=== PATIENT | female | born 1940 | race Caucasian/White ===

== ENCOUNTER 2023-09-15 20:25 | Emergency (ER) | payer MEDICARE, SELFPAY ==
[2023-09-15 20:28] VITALS: BMI 25.6
[2023-09-15 20:29] VITALS: BP 103/70
--- NOTE | 2023-09-15 21:25 | ED.GENMED ---
History of Present Illness
General
Chief Complaint: Social Service Referral
Source: patient, records, ambulance crew and group home records
Exam Limitations: none
Time Seen by Provider: 09/15/23 21:06
Nursing documentation reviewed up to this point in time: agreed with
Travel History
Have you had any contact with someone who has COVID-19?: Unable to Answer
Do you have any symptoms of coronavirus? Fever > 100 degrees, chills, cough, shortness of breath, sore throat, loss of taste or smell, muscle aches, or headache?: Unable to Answer
History of Present Illness
History of Present Illness:
Patient is an 83-year-old female from a local group home where she became very aggressive this evening. Patient has a history of dementia. This is not an acute event. Patient denies any complaint. Patient denies headache, chest pain or
shortness of breath. Patient denies any abdominal pain or extremity pain.
Past History
Past History
ED Past Medical History: GERD, HTN and Other (Alzheimer's, dementia, encephalopathy, anemia, electrolyte imbalances)
Social History
Living: group home
Review of Systems
Review of Systems
All Other Systems: Not applicable
Phy Exam
Physical Exam
Physical Exam:
Physical Exam
General: No apparent distress, alert and interactive, well nourished, well hydrated
HENT: Normocephalic, supple with no lymphadenopathy, no thyromegaly
Eyes: Clear sclera, conjuctiva without injection
Heart: Regular rhythm and rate. No S3, S4. No murmur.
Lungs: No respiratory distress, no stridor, lung sounds clear and equal bilaterally
Abdomen: Soft, nontender, BS good
Neuro: Alert and oriented to person, CN II - XII intact, no motor focality
Skin: no rash
Psychiatric: well kept. interactive and cooperative but easily agitated
Extremities: No edema, cyanosis, tenderness
Course
Vital Signs
Initial and Last Documented VS:
Initial Vital Signs
Temp Pulse Resp Pulse Ox
98.2 F 86 18 96
09/15/23 20:28 09/15/23 20:28 09/15/23 20:28 09/15/23 20:28
Last Documented Vital Signs
Temp Pulse Resp Pulse Ox
98.2 F 86 18 96
09/15/23 20:28 09/15/23 20:28 09/15/23 20:28 09/15/23 20:28
*Radiology
Radiology exam reviewed: other (na)
*Pulse Oximetry
Patient hypoxic: no
*EKG
Interpreted by ED Provider?: NA
*Banquet Captain Interpretation
Rate: Banquet Captain- N/A
*Critical Care Note
Total Time (30-74mins, 75-104mins- exclusive of procedures): Not Applicable
Update Note
Update Note:
Reviewed the patient's medications and will start on 2.5 of Zyprexa a day. Black box warning is acknowledged but feel the patient will benefit.
ED Attending Note
-
Portions of this chart may have been created with voice recognition software.� Occasional wrong word or��sound alike� substitutions may have occurred due to the inherent limitations of voice recognition software.
Discharge Plan
Departure
Patient Disposition: [facility]ci/SNF
Date of Disposition: 09/15/23
Time of Disposition: 21:45
Patient with high blood pressure during this ER visit?: No
Condition: Fair
Discharge Problem:
Agitation due to dementia, Dementia
Instructions: Dementia (including Alzheimer disease), Tips for caregivers of people with Alzheimer disease
Prescriptions:
New
olanzapine [Zyprexa] 2.5 mg tablet
2.5 mg PO DAILY Qty: 14 0RF
No Action
acetaminophen 325 mg Tablet
650 mg PO Q4H PRN (Reason: mild pain/temp>100F)
alendronate 70 mg Tablet
70 mg PO QWEEK
cyanocobalamin (vitamin B-12) [Vitamin B-12] 1,000 mcg Tablet
1,000 mcg PO DAILY
valsartan 80 mg Tablet
80 mg PO DAILY
magnesium hydroxide [Milk of Magnesia] 400 mg/5 mL Suspension
30 ml PO DAILY PRN (Reason: if no bm x 3 days)
bisacodyl [Dulcolax (bisacodyl)] 10 mg Suppository
10 mg AK DAILY PRN (Reason: if mom ineffective after 24hrs)
Fleet Enema 19-7 gram/118 mL Enema
118 ml AK DAILY PRN (Reason: if dulcolax ineffective after 24hrs)
folic acid 1 mg Tablet
1 mg PO DAILY
multivitamin with minerals Tablet
1 tab PO DAILY
calcium carbonate-vitamin D3 [Calcium 600 + D(3)] 600 mg-10 mcg (400 unit) Tablet
1 tab PO BID
Referrals:
Ridge Johnson MD [Family Provider] - Follow up in 2-3 days
Activity Restrictions/Additional Instructions:
Continue present medications and therapy
Interventions
Interventions:
*Risk Screen - Suicide Last Done: 09/15/23 20:28
*General Assessment Last Done: 09/15/23 20:28
*Neglect/Abuse Screening Last Done: 09/15/23 20:28
Discharge Date and Time
Print Language: DOMINICAN
[2023-09-15 23:03] VITALS: BP 106/67
== END 2023-09-16 00:09 ==
LOC: EMR 20:25
PROVIDERS: EMERGENCY PHYSICIAN Emergency Medicine; FAMILY PHYSICIAN Internal Medicine
DX: G30.9 Alzheimer's disease, unspecified (principal); F02.811 Dementia in other diseases classified elsewhere, unspecified severity, with agitation
CPT/HCPCS: 99283

== ENCOUNTER 2023-12-21 20:56 | Inpatient (IN) | payer MEDICARE, OTHER, SELFPAY ==
[2023-12-21 16:22] VITALS: BP 135/61
[2023-12-21 16:23] VITALS: BP 135/61; BMI 24.6
[2023-12-21 16:42] LABS: % Basophils 0.3 % (0-2); % Immature Granulocytes 0.3 % (0-0.5); % Lymphocytes 24.2 % (20.5-51.1); % Monocytes 6.7 % (1.7-9.3); % Neutrophils 65.5 % (42.2-75.2); Absolute Eosinophils 0.1 10^3/uL (0-0.7); Absolute Lymphocytes 0.9 10^3/uL (1.2-3.4); Absolute Monocytes 0.3 10^3/uL (0.1-0.6); Absolute Neutrophils 2.4 10^3/uL (1.4-6.5); Hematocrit 30.2 % (37.0-47.0); Hemoglobin 10.3 g/dL (12.0-16.0); Mean Corp Hgb Conc. 34.1 g/dL (33.0-37.0); Mean Corpuscular Volume 93.8 fL (81.0-99.0); Mean Platelet Volume 8.8 fL (7.4-10.4); Nucleated Red Blood Cells % 0 %; Platelet Count 152 10^3/uL (130-400); Red Blood Cell Count 3.22 10^6/uL (4.20-5.40); Red Cell Dist. Width 14.9 % (11.5-14.5); White Blood Cell Count 3.7 10^3/uL (4.8-10.8)
[2023-12-21 16:55] LABS: ALT (SGPT) 14 U/L (0-35); AST (SGOT) 29 U/L (14-36); Albumin 3.3 g/dl (3.5-5.0); Alkaline Phosphatase 66 U/L (38-126); Blood Urea Nitrogen 17 mg/dl (7-17); Calcium 8.5 mg/dl (8.4-10.2); Carbon Dioxide 25 mmol/L (22-30); Chloride 108 mmol/L (98-107); Estimated Creatinine Clearance 48 ml/min; Glucose 101 mg/dl (70-99); Potassium 3.3 mmol/L (3.5-5.1); Sodium 140 mmol/L (135-145); Total Bilirubin 0.8 mg/dl (0.2-1.3); Total Protein 5.9 g/dl (6.3-8.2); eGFR > 60.00
--- NOTE | 2023-12-21 18:18 | ED.MUSCINJ ---
HPI-Injury
General
Chief Complaint: Fall
Source: ambulance crew and alf
Exam Limitations: altered mental status
Time Seen by Provider: 12/21/23 16:34
Nursing documentation reviewed up to this point in time: agreed with
History of Present Illness-Injury
Is this injury a work related problem?: No
Is pt an associate of [facility]/[place]?: No
Initial Injury comments:
History of dementia. Resides in alf. Staff found her on floor, complaining of left hip pain. Brought to ED via EMS for eval.
Past History
Past History
ED Past Medical History: GERD, HTN and Other (Alzheimer's, dementia, encephalopathy, anemia, electrolyte imbalances)
Social History
Living: alf
Review of Systems
Review of Systems
Allergies reviewed?: Yes
All Other Systems: ROS reviewed and negative except as documented in HPI and ROS
Constitutional: Reports no symptoms
EENT: Reports no symptoms
Respiratory: Reports no symptoms
Cardiac: Reports no symptoms
ABD/GI: Reports no symptoms
: Reports no symptoms
Musculoskeletal: Reports joint pain (Left hip pain)
Skin: Reports no symptoms
Neurological: Reports no symptoms
Psychiatric: Reports no symptoms
Musculoskeletal Injury Exam
Musculoskeletal Injury Exam
Left Hip:
Pain with Movement?: Moderate
Tender to palpation?: Moderate
Soft tissue swelling?: None
External deformity and angulation?: None
Joint effusion?: None
Contusion?: Moderate
Hematoma-local bleeding into tissue?: None
Strain- Sprain- Tear (Connective tissue injury)?: Moderate
Crepitus with movement?: No
Joint instability?: No
Malalignment/deformity?: No
Range of motion: Limited
Distal skin color and temperature: normal-warm & good color
Capillary Refill: normal
Normal distal neurovascular exam?: Yes
Peripheral Pulses: posterior tibial (left): 3+ and dorsalis pedis (left): 3+
Phy Exam
General Physical Exam
General Presentation: mild distress
General age: appears stated age
General Skin: warm and dry
General Mental: alert
Musculoskeletal Exam
Musculoskeletal Exam: neuro vasc intact
Skin Exam
Skin Exam: normal color, warm/dry and no rash
Psychiatric Exam
Psychiatric Exam: normal mood/affect
Injury Course
Orders/Labs/Results
Orders:
Orders
12/21/23 16:35
CMP [Comprehensive Metabolic Panel] Urgent
Complete Blood Count/With Diff Urgent
12/21/23 16:47
Hip, Left 2-3 Views [CR Hip - LT w/wo Pel 2-3 Vw*] Urgent
Comment:
Reason For Exam: fall
Include a pelvis x-ray?: Yes
12/21/23 17:17
Potassium Chloride Powder [Klor-Con] 40 meq PO NOW STA
12/21/23 18:30
Restraints - Non Violent As Directed
Justification-Patient:: 2-Protective Intervention
Restraint Type-: Soft Limb-L&R Wrist/4rail
Apply From (date): 12/21/23
Apply from (time): 17:00
Remove (date): 12/22/23
Remove (time): 23:59
12/21/23 18:49
CT Head W/o Iv Contrast Urgent
Comment:
Reason For Exam: unwitnessed fall
12/21/23 20:44
Admit/Transfer Patient As Directed
Co-Sign Provider:
Level of Care: Inpatient admission
Assign to:: Medical/Surgical
Physician / Group: Hospitalist
Diagnosis: broken hip
Reason for Hospitalization: broken hip
Expected length of stay greater than two midnights?: Yes
ELOS- Estimated Length of Stay in days: 4
I certify the patient meets the requirements for IP care: Yes
12/21/23 20:47
Code Status As Directed
Resuscitation Status: Do not resuscitate
Based on pt advanced directive or healthcare POA form: Yes
DNR Bracelet Application ONCE
12/21/23 21:53
Acetaminophen [Tylenol] 650 mg PO [id number] PRN
Bisacodyl [Dulcolax] 10 mg RECTAL DAILYPRN PRN
Bisacodyl [Dulcolax] 10 mg RECTAL [id number] PRN
Docusate W/Senna [Senokot-S] 1 tablet PO BIDPRN PRN
Lactated Ringers [Lr] 1,000 ml IV 50 mls/hr
Magnesium Hydroxide [Milk of Magnesia] 30 ml PO [id number] PRN
Morphine Sulfate 2 mg IV Q4HPRN PRN
Phosphate Enema [Fleet Phosphate Enema-Adult] 118 ml RECTAL DAILYPRN PRN
Polyethylene Glycol Powder [Miralax] 17 grams PO DAILYPRN PRN
12/21/23 21:53
Activity As Directed
Activity Level: Bedrest
Pneumatic Compression Sleeves As Directed
Type: Knee high
Vital Signs As Directed
Frequency: Per unit guidelines
DX Deep Vein Thrombosis Video Routine
12/21/23 22:00
Olanzapine [Zyprexa] 2.5 mg PO HS
12/21/23 22:04
Magnesium Routine
12/22/23 Breakfast
NPO
Allow oral meds: Yes
Allow clear liquids: 4hrs prior to procedure
NPO for procedure after (time): midnight
Comment: may have unrestricted clear liquid up to 4 hrs prior to scheduled procedure
Basic Metabolic Panel IN AM
Complete Blood Count/No Diff IN AM
Magnesium IN AM
12/22/23 08:00
Calcium Carbonate/Vitamin D3 [Oscal 500 + D] 500 mg PO BID
Cyanocobalamin [Vitamin B-12] 1,000 mcg PO DAILY
Trazodone [Desyrel] 12.5 mg PO BID
Abnormal Lab Results
12/21/23
16:35
WBC 3.7 L 10^3/uL
(4.8-10.8)
RBC 3.22 L 10^6/uL
(4.20-5.40)
Hgb 10.3 L g/dL
(12.0-16.0)
Hct 30.2 L %
(37.0-47.0)
MCH 32.0 H pg
(27.0-31.0)
RDW 14.9 H %
(11.5-14.5)
Absolute Lymphs (auto) 0.9 L 10^3/uL
(1.2-3.4)
Potassium 3.3 L mmol/L
(3.5-5.1)
Chloride 108 H mmol/L
(98-107)
Glucose 101 H mg/dl
(70-99)
Total Protein 5.9 L g/dl
(6.3-8.2)
Albumin 3.3 L g/dl
(3.5-5.0)
12/21/23 16:35
12/21/23 16:35
*Radiology
Radiology exam reviewed: radiology read reviewed
*Pulse Oximetry
Patient hypoxic: no
*Critical Care Note
Total Time (30-74mins, 75-104mins- exclusive of procedures): Not Applicable
Update Note
Update Note:
Patient to ED after unwitnessed fall at [place]. Complains of left hip pain. Xray confirming left femoral neck fx. She will be admtted to hospitalist. Dr. Correa notified via tiger text. Will plan for surgery tomorrow if medically cleared. Daughter
Zuly notifed of findings and plan. She is agreeable to admission. Requests to speak with hospitalist and ortho after their evaluation.
ED Attending Note
-
Portions of this chart may have been created with voice recognition software.� Occasional wrong word or��sound alike� substitutions may have occurred due to the inherent limitations of voice recognition software.
Discharge Plan
Departure
Patient Disposition: Admit
Date of Disposition: 12/21/23
Time of Disposition: 18:21
Presentation/result/management discussed w/ accepting MD/DO: Hospitalist
Patient with high blood pressure during this ER visit?: No
Condition: Fair
Covid-19: Not Applicable
Discharge Problem:
Closed left hip fracture
Interventions
Interventions:
*Risk Screen - Suicide Last Done: 12/21/23 16:23
*General Assessment Last Done: 12/21/23 16:23
*Neglect/Abuse Screening Last Done: 12/21/23 16:23
ED- Fall Risk Assessment Last Done: 12/21/23 21:50
*ED COVID-19 Vaccine History Last Done: 12/21/23 16:23
*Nursing Disposition Last Done: 12/21/23 21:50
ED-Musculoskeletal Assessment Last Done: 12/21/23 16:31
ED- Neurological Assessment Last Done: 12/21/23 16:31
ED-Skin Assessment Last Done: 12/21/23 16:31
Discharge Date and Time
Discharge Date/Time: 12/21/23 20:50
--- NOTE | 2023-12-21 20:19 | HPS.HSE ---
Family Physician
-
Family Physician: Ridge Johnson
Chief Complaint
-
fall and pain
History of Present Illness
83 woman with a History of dementia. She lives in a assisted. The [place] Staff found her on floor, complaining of left hip pain. She was brought to ED via EMS for eval. She cannot give any further history. She was calm at the time of the exam.
She stated she had hip pain but was otherwise comfortable. In the ED she was found to have an Acute, fracture of the subcapital left femoral neck without significant displacement. The bony pelvis is intact. there are also Chronic degenerative
changes of the lower lumbar spine and symphysis pubis.
Medical History
Past Medical History
Past Medical History: Reports Other
Additional Past Medical History:
Dementia
GERD,
essential HTN
encephalopathy,
anemia,
electrolyte imbalances
Dysphagia
anxiety d/o
protein calorie malnutrition
folate deficiency
dermatochalasis
cataracts
PVD
osteoporosis
B12 deficiency
Chronic hypokalemia
Chronic sinusitis
Left shoulder pain
Past Surgical History: Reports Other
Additional Past Surgical History:
not known
Social History
Unable to obtain full social history at this time due to: Dementia
Family History
Family History: Not pertinent
Allergies / Home Medications
Allergies reflects when Allergies were last updated in [facility].
Home Medications with original date entered in [facility]
Allergy/Medication List:
Allergies
Allergy/AdvReac Type Severity Reaction Status Date / Time
lisinopril Allergy Unknown Verified 09/15/23 20:37
tramadol Allergy Unknown Verified 09/15/23 20:37
Home Medications
acetaminophen 325 mg tablet 650 mg PO BID 09/15/23
alendronate 70 mg tablet 70 mg PO QWEEK 09/15/23
bisacodyl 10 mg rectal suppository (Dulcolax (bisacodyl)) 10 mg SD DAILYPRN PRN if mom ineffective after 24hrs 09/15/23
calcium carbonate 600 mg-vitamin D3 10 mcg (400 unit) tablet (Calcium 600 + D(3)) 1 tab PO BID 09/15/23
cyanocobalamin (vitamin B-12) 1,000 mcg tablet (Vitamin B-12) 1,000 mcg PO DAILY 09/15/23
magnesium hydroxide 400 mg/5 mL oral suspension (Milk of Magnesia) 30 ml PO [id number] PRN if no bm x 3 days 09/15/23
multivitamin with minerals 1 tab PO DAILY 09/15/23
sodium phosphates 19 gram-7 gram/118 mL enema (Fleet Enema) 118 ml SD DAILYPRN PRN if dulcolax ineffective after 24hrs 09/15/23
acetaminophen 325 mg tablet (Tylenol) 650 mg PO [id number] PRN mild pain 12/21/23
olanzapine 2.5 mg tablet (Zyprexa) 2.5 mg PO HS 12/21/23
trazodone 50 mg tablet 12.5 mg PO BID 12/21/23
Review of Systems
-
Unable to obtain full review of systems at this time due to: Dementia
Physical Exam
Vital Signs
Vital Signs
Temp Pulse Resp BP Pulse Ox
97.6 F 67 16 135/61 96
12/21/23 16:23 12/21/23 16:23 12/21/23 16:23 12/21/23 16:23 12/21/23 16:23
Physical Exam
General: Well Developed, Well Nourished, No Apparent Distress and Comfortable
HEENT: Nose Appears Normal and Ears Appear Normal
Respiratory: Clear
Cardiac: S1/S2 and Regular Rhythm
GI: Soft, Non Tender and Non Distended
Musculoskeletal: No Clubbing, No Cyanosis, Edema, Left Lower Extremity and Edema, Right Lower Extremity
Skin: Warm and Dry
Neuro: Awake and Alert
Psych: Calm
Laboratory Results
-
12/21/23 16:35
12/21/23 16:35
Laboratory Results
Total Bilirubin 0.8 mg/dl (0.2-1.3) 12/21/23 16:35
AST 29 U/L (14-36) 12/21/23 16:35
ALT 14 U/L (0-35) 12/21/23 16:35
Alkaline Phosphatase 66 U/L (38-126) 12/21/23 16:35
Data Reviewed
-
Lab Data: Labs Reviewed by me
Impression/Plan
-
IMPRESSION:
83 woman with dementia, had a fall and broke her hip
PLAN:
1. Broken hip - ortho consulted
NPO after midnight
Probable surgery in am
2. Dementia - contact family to discuss disposition/ provide update
3. Anemia, H/H 10.3/30.2, baseline not known
Transfusion not indicated at this time
4. Low K, cause not known, appears chronic per records reviewed
Will replete with PO today
Recheck in am
SQ heparin for DVTp
Code status documented on [place] paperwork as DNR/DNI.
[2023-12-21 22:00] VITALS: BP 160/94; BMI 27.5
[2023-12-21] MEDS: LR 1000 IV (22:21)
[2023-12-21] MEDS: MORPHINE SULFATE 2 MG IV (22:21)
[2023-12-21] MEDS: ZYPREXA 2.5 MG PO (22:21)
[2023-12-21 22:26] LABS: Magnesium 1.8 mg/dl (1.6-2.3)
[2023-12-22] VITALS (11 sets, daily range): BP systolic 105–137; BP diastolic 67–86
[2023-12-22] MEDS: MORPHINE SULFATE 2 MG IV ×2 (03:10→08:28)
--- NOTE | 2023-12-22 04:44 | PTCARENOTE ---
Pt arrived on a stretcher from the ED with mitten restraints. Pt was combative and pulling at IV. Pt alert & oriented to self & place, not tome. Pt post fall sustained a left hip fx. Pt continue to exhibit behavior requiring the continued use of the
mittens, trying to pull at tubing and combative with staff at times, other times very sweet. Pt has IV LR running at 50mL/hr, bed alarm is on & frequent checks of pt to ensure her comfort, assess her pain and safety.
[2023-12-22 07:45] LABS: Hemoglobin 11.2 g/dL (12.0-16.0); Mean Corp Hgb Conc. 33.9 g/dL (33.0-37.0); Mean Corpuscular Hgb 31.9 pg (27.0-31.0); Mean Platelet Volume 9.4 fL (7.4-10.4); Platelet Count 183 10^3/uL (130-400); Red Blood Cell Count 3.51 10^6/uL (4.20-5.40); Red Cell Dist. Width 14.7 % (11.5-14.5); White Blood Cell Count 4.9 10^3/uL (4.8-10.8)
[2023-12-22 08:19] LABS: Blood Urea Nitrogen 14 mg/dl (7-17); Calcium 8.4 mg/dl (8.4-10.2); Carbon Dioxide 25 mmol/L (22-30); Chloride 106 mmol/L (98-107); Estimated Creatinine Clearance 53 ml/min; Glucose 105 mg/dl (70-99); Magnesium 1.9 mg/dl (1.6-2.3); Potassium 3.6 mmol/L (3.5-5.1); Sodium 139 mmol/L (135-145); eGFR > 60.00
[2023-12-22] MEDS: DESYREL 12.5 MG PO ×2 (08:22→20:52)
[2023-12-22] MEDS: OSCAL 500 + D 500 MG PO ×2 (08:23→20:52)
[2023-12-22] MEDS: VITAMIN B-12 1000 MCG PO (08:23)
--- NOTE | 2023-12-22 09:57 | CON.ORTHO ---
Addendum entered and electronically signed by Tito Correa MD 12/22/23 16:44:
I evaluated the patient at bedside. I agree with the above note. I discussed with the patient's daughter. 83-year-old female with a nondisplaced left femoral neck fracture sustained after a fall. The patient resides at a care facility. We
discussed treatment options including close reduction percutaneous pinning versus hemiarthroplasty. Because the fracture is nondisplaced, we discussed percutaneous pinning. We discussed the pros and cons of surgery including possible nonunion and
need for further surgery. All questions were answered. Shared decision was to proceed with percutaneous pinning
Original Note:
Consultation
-
Date/Time Consultation Requested: January 06/0958
Date/Time Consultation Performed: January 06/0805
Requesting Provider: Juan
Performing Provider: James Correa
Reason for Consultation: Left Hip Fx
Consultation - Orthopedics
History
Dictation#[id number]
I was asked to see this 83-year-old white female with a PMH of Dementia, GERD, essential HTN, encephalopathy, anemia, electrolyte imbalances, Dysphagia, dermatochalasis, PVD, osteoporosis, B12 deficiency, Chronic hypokalemia, Chronic sinusitis,
anxiety, who was found by staff on the floor at her senior living, [facility], complaining of left hip pain. family present for today's consultation. Denies any previous issues or injuries to the left hip. She was transported here to
[facility] ER where plain radiographs confirmed a nondisplaced subcapital proximal femur fracture. She has been admitted to the hospitalist service with consultation to us for the consideration of surgical correction of her LEFT hip
fracture
Allergies / Home Medications
Allergy/AdvReac Type Severity Reaction Status Date / Time
lisinopril Allergy Unknown Verified 09/15/23 20:37
tramadol Allergy Unknown Verified 09/15/23 20:37
�Medication �Instructions �Recorded
acetaminophen 325 mg tablet 650 mg PO BID 09/15/23
alendronate 70 mg tablet 70 mg PO QWEEK 09/15/23
bisacodyl 10 mg rectal suppository 10 mg ME DAILYPRN PRN if mom 09/15/23
(Dulcolax (bisacodyl)) ineffective after 24hrs
calcium carbonate 600 mg-vitamin 1 tab PO BID 09/15/23
D3 10 mcg (400 unit) tablet
(Calcium 600 + D(3))
cyanocobalamin (vitamin B-12) 1,000 mcg PO DAILY 09/15/23
1,000 mcg tablet (Vitamin B-12)
magnesium hydroxide 400 mg/5 mL 30 ml PO [id number] PRN if no bm x 3 09/15/23
oral suspension (Milk of Magnesia) days
multivitamin with minerals 1 tab PO DAILY 09/15/23
sodium phosphates 19 gram-7 118 ml ME DAILYPRN PRN if dulcolax 09/15/23
gram/118 mL enema (Fleet Enema) ineffective after 24hrs
acetaminophen 325 mg tablet 650 mg PO [id number] PRN mild pain 12/21/23
(Tylenol)
olanzapine 2.5 mg tablet (Zyprexa) 2.5 mg PO HS 12/21/23
trazodone 50 mg tablet 12.5 mg PO BID 12/21/23
Vital Signs / Lab Results
Temp Pulse Resp BP Pulse Ox
97.7 F 98 18 134/80 93
12/22/23 07:40 12/22/23 07:40 12/22/23 07:40 12/22/23 07:40 12/22/23 07:40
12/22/23 07:16
12/22/23 07:16
Assessment / Plan
PE: Afeb. Bedrest. Left hip skin intact. LE equal. No significant edema or ecchymosis. Grimacing with palpation of the hip. deferred range of motion and logroll due to known, nondisplaced fracture. Calf is soft. Palpable pulses distally
Xrays: NONDISPLACED LEFT femoral neck fracture
Impression: JAMSHID
Plan: Discussed with the patient's family, including her daughter Zuly (POA). Also discussed with attending hospitalist, Dr. Martinez. Fortunately her fracture is nondisplaced and can be fixated with cannulated screws. Luckily, at this point, she
does not require a prosthesis, as hip precautions would be very difficult with her dementia. I discussed the nonsurgical and surgical approaches to her fracture and the family has agreed and consented to proceed with surgical correction. RBAs of
each approach were discussed at length. I briefly discussed the postop and rehab course as well with the family, and we will appreciate CM assistance. We will arrange for a cannulated screw fixation of her LEFT hip a little later today under the
direction of Dr. Correa. OR aware. Operative site has been marked as the left hip. Surgical and blood consents have been signed by her daughter, Zuly (POA), and placed on the patient's chart. Patient is and will remain NPO. [employer] telecommunications line installer to the
OR. T&S requested. Will follow
--- NOTE | 2023-12-22 10:33 | CM ---
CM spoke with [facility]- pt is LTC resident/bed-hold
Pt with dementia and is alert to self and family only- typically believes she is at work at the SNF
Likes to stay busy and organizes her clothes daily- typically follows directions and can be re-oriented
Dose become angry at times but no aggression
Pt is independent with ambulation- WW recommended and pt refuses
Staff assist with cueing and coaxing for bathing and dressing
PCP- Ridge Johnson
Rx- [facility]
Call with dtr- introduced self and explained role
Family in agreement for SNF return on dc
Return SNF referral sent via [facility]
Anticipate OR today for hip surgery
Discharge Disposition- return [facility] SNF/LTC via BLS
--- NOTE | 2023-12-22 10:44 | PTCARENOTE ---
Patient right eye conjunctiva appears reddened and bloody with possible broken blood vessel. Dr. Martinez made aware and examined patient. No new orders at this time.
--- NOTE | 2023-12-22 16:46 | W.PN.HOSP.TC ---
Today's Communication/Plan
-
OR
Assessment / Plan
Assessment / Plan
Impression
Status post mechanical fall with left femoral neck fracture.
Osteoporosis contributing to fracture.
Dementia, senile type.
History of essential hypertension, currently not on antihypertensive medication
Anemia of chronic disease.
Plan:*
Left femoral neck fracture.
Plan is for surgical repair
Orthopedic consult appreciated
Medically optimized with no requirements for additional workup prior to surgery
Dementia senile type
Continue preadmission regimen including Zyprexa, trazodone.
Protective interventions, currently on upper extremity restraints.
Reassess postoperatively.
Anticipated Discharge: > 48 hours
Subjective/Interval History
-
Date of Service: December 22, 2023
Objective Data
-
Labs:
Laboratory Results
12/22/23
07:16
WBC 4.9
Hgb 11.2 L
Hct 33.0 L
Plt Count 183 D
Sodium 139
Potassium 3.6
Chloride 106
Carbon Dioxide 25
BUN 14
Creatinine 0.7
Glucose 105 H
Calcium 8.4
Vital Signs:
Vital Signs
Temp Pulse Resp BP Pulse Ox
97.6 F 60 18 105/68 97
12/22/23 15:25 12/22/23 15:25 12/22/23 15:25 12/22/23 15:25 12/22/23 15:25
I&O
12/21/23 12/22/23 12/23/23
06:59 06:59 06:59
Intake Total 570 / 570
Output Total 500 / 500
Balance 70 / 70
Physical Exam
-
General: Well Developed and No Apparent Distress
HEENT: Normocephalic, Atraumatic and Moist Mucous Membranes
Respiratory: Clear to Auscultation
Cardiac: Regular Rhythm and S1/S2; Negative Murmur, Rub or Gallop
GI: Soft, Nontender, Nondistended and Normal Bowel Sounds; Negative Organomegaly
Rectal: Deferred by Provider
Musculoskeletal: No Clubbing, No Cyanosis and No Edema
Skin: Negative Rash
Neuro: Awake, Alert, Oriented (To name only) and Nonfocal/Grossly Intact
--- NOTE | 2023-12-22 17:47 | PTCARENOTE ---
Patient remained with mitts b/l. Attempting to remove mitts and pull at IV. Patient taken to OR around [address] Report given to OR. Patients daughter Zuly made aware that patient left for surgery.
--- NOTE | 2023-12-22 18:54 | OR.RPT ---
Operative Report
Operative Report
Orthopedic Surgery Operative Note
DATE OF OPERATION: 12/22/2023
PREOPERATIVE DIAGNOSES: Left femoral neck fracture, nondisplaced
POSTOPERATIVE DIAGNOSES: Same
OPERATION PERFORMED: Left femoral neck percutaneous pinning
SURGEON: Tito Correa MD
ASSISTANTS: NA
ANESTHESIA: General
COMPLICATIONS: None
ESTIMATED BLOOD LOSS: 20mL
IMPLANTS: Coy stainless steel cannulated partially threaded 6.5mm screws x3 with washers
DRAINS: None
INDICATIONS FOR PROCEDURE: 83-year-old female presented from her care facility with left hip pain after a fall. X-rays showed nondisplaced left femoral neck fracture. I discussed with the patient's family treatment options including
hemiarthroplasty versus percutaneous pinning. The patient has dementia. We discussed that in light of the fracture being nondisplaced, percutaneous pinning may be an operative treatment to stabilize the fracture to permit healing. We discussed
the option of hemiarthroplasty and some the risks of being more invasive and potential instability. We discussed that if her fracture was displaced that hemiarthroplasty would be the preferred treatment. Shared decision was to proceed with
percutaneous pinning of the left femoral neck fracture.
We discussed the risks, benefits, and alternatives of various treatment options. Shared decision was to proceed with surgical treatment. The patient understood the risks including, but not limited to, bleeding, infection, failure to relieve pain,
more pain than preop, damage to blood vessels and nerves, need for reoperation, mechanical failure of the implants, wound healing problems, stiffness, instability, blood clot, pulmonary embolism, myocardial infarction, pneumonia, arrhythmia, CVA,
and . The patient and family accepted these risks and wished to proceed with surgery. All questions were answered and informed consent was obtained.
PROCEDURE IN DETAIL:
The patient was identified in the preoperative holding area. The operative limb was identified as the operative site and marked for safety. The patient was transferred to the operating room and transferred to the operative table. General anesthesia
was performed. IV antibiotics and TXA were given. All bony prominences were well-padded. The operative limb was prepped and draped in the usual sterile fashion.
Fluoroscopy was used to confirm the fracture was nondisplaced. The guidepin was localized under fluoroscopy on the posterior inferior aspect of the femoral neck. A 4 cm incision was made. Dissection was carried down to the IT band. The IT band
was split in line and blunt dissection was carried down to bone through the vastus lateralis. The guidepin was localized under fluoroscopy on the posterior inferior aspect of the femoral neck. The pin was advanced and checked on both AP and
lateral to confirm appropriate trajectory. The goal is to hug the inferior calcar. The pin was advanced until it was in subchondral bone. A second pin was placed in the similar fashion the posterior superior quadrant. A third pin was placed
under fluoroscopy in the anterior superior aspect of the femoral neck. The length of the pins were measured. The outer cortex was drilled. The screws were advanced on power and then by hand with washers with care to make sure no soft tissue was
entrapped. The screws had good bony purchase. Once all 3 screws were placed, the hip was taken through range of motion to ensure there was no intra-articular placement. The pins were removed.
The incision was thoroughly irrigated with sterile saline. The fascia was closed with 0 PDS. The deep dermal tissue was closed with 2-0 PDS in a running fashion. 3-0 Monocryl was used for the subcuticular layer. Dermabond was applied. An Aquacel
dressing was applied.
The patient awoke from anesthesia without any difficulties. The sponge and instrument counts were correct at the end of the case. I was present and participated in the entire procedure.
Post Operative Plan:
- Pain control
- PT/OT
- DVT prophylaxis: ASA x4 weeks
- ABX: Ancef x2 doses
- WB Status: WBAT - no open chain strengthening
Tito Correa MD
[2023-12-22] MEDS: TYLENOL PO ×3 (20:51→23:31)
[2023-12-22] MEDS: LR IV (20:51)
[2023-12-22] MEDS: ASPIRIN 325 MG PO (20:51)
[2023-12-22] MEDS: SENOKOT 17.2 MG PO (20:52)
[2023-12-22] MEDS: TYLENOL 650 MG PO (21:00)
[2023-12-22] MEDS: ZYPREXA 2.5 MG PO (23:23)
--- NOTE | 2023-12-23 00:10 | PTCARENOTE ---
Pt returned from PACU s/p L idalia hip screw at 1950. Pt drowsy but arousable to verbal. +CMS to LLE. Aquacell to left hip CDI. VS WNL. No c/o pain. Bed in lowest position, safety maintained. Assessment ongoing.
[2023-12-23] MEDS: ANCEF 5 IV ×2 (01:40→09:05)
[2023-12-23 03:14] VITALS: BP 142/77
[2023-12-23] MEDS: TYLENOL PO (03:56)
--- NOTE | 2023-12-23 07:44 | W.PN.ORTHO ---
Today's Communication / Plan
-
83yo POD#1 left hip CRPP under the direction of Dr. Correa
-Weight bearing as tolerated. Ambulate with assistive device
-PT/OT
-Maintain dressings
-Continue with pain management as needed
-Aspirin 325mg daily x4 weeks postop for DVT prophylaxis
-Case management consult for discharge planning
-Will continue to follow along
Assessment
.
Distal Motor Intact: Yes
Dressing:
Clean, dry and intact.
Plan
.
Surgery / Date: Left hip CRPP 12/22/23 Dr. Correa
DVT Prophylaxis: Aspirin
Activity:
Out of bed.
PT/OT
Subjective
.
.:
Patient resting comfortably in bed this morning. She reports no pain.
Vital Signs and Labs
.
Vital Signs and Labs:
Lab Results
12/22/23 07:16
12/22/23 07:16
Temp Pulse Resp BP Pulse Ox
97.7 F 70 14 142/77 97
12/23/23 03:14 12/23/23 03:14 12/23/23 03:14 12/23/23 03:14 12/23/23 03:14
Physical Exam
-
LLE: Dressing in place are clean, dry, and intact. Mild edema to thigh. Thigh soft and compressible. Mild tenderness to palpation of lateral hip. Able to plantar/dorsiflex the ankle. Sensation intact. Wiggles all toes. Cap refill <2secs
[2023-12-23 07:49] VITALS: BP 145/76
--- NOTE | 2023-12-23 08:30 | PN.CDI ---
CDI
- -
CDI:
Physician Documentation Request
Admit Date: 12/21/23 20:56
Dear Doctor Juan,
Clinical Indicators:
Patient admitted with left femoral neck fracture.
12/21 (04:44) RN note, '...Pt continue to exhibit behavior requiring the continued use of the mittens, trying to pull at tubing and combative with staff at times, other times very sweet.'
12/21 PN, 'Dementia senile type Continue preadmission regimen including Zyprexa, trazodone. Protective interventions, currently on upper extremity restraints.'
Please clarify any associated manifestations of the senile dementia:
Senile dementia with agitation/behavioral disturbance
Senile dementia without behavioral disturbance
Other, please specify
Use of terms such as suspected, likely, concern for, or probable (associated with a specific diagnosis that is being evaluated, monitored, or treated as if it exists) are acceptable and can be coded in the inpatient setting, when documented at the
time of discharge.
Thank you,
KLARISSA Gavin RN
CDI Specialist
available via tiger text
Please use your independent medical judgment in providing your response.
[2023-12-23] MEDS: ASPIRIN 325 MG PO (09:04)
[2023-12-23] MEDS: TYLENOL 650 MG PO ×3 (09:04→15:21)
[2023-12-23] MEDS: OSCAL 500 + D 500 MG PO (09:04)
[2023-12-23] MEDS: SENOKOT 17.2 MG PO (09:05)
[2023-12-23] MEDS: DESYREL 12.5 MG PO (09:05)
[2023-12-23] MEDS: VITAMIN B-12 1000 MCG PO (09:05)
[2023-12-23] MEDS: FLUSH (NSS) 2 FLUSH IV (09:09)
--- NOTE | 2023-12-23 12:29 | W.DS.TRANS ---
DC Summary - Residential Framing Carpenter
-
Discharge Instructions:
Discharge Diagnosis/Procedures Left femoral neck fracture
Diet Regular
Additional Activity Weight bearing as tolerated. Ambulate with
assistive device
-PT/OT
Instructions:
Stand-Alone Forms:
Changes to Home Medications: No
Discharge Medications:
DC Medications w/original date entered in [facility]
alendronate 70 mg tablet 70 mg PO QWEEK 09/15/23
bisacodyl 10 mg rectal suppository (Dulcolax (bisacodyl)) 10 mg CO DAILYPRN PRN if mom ineffective after 24hrs 09/15/23
calcium carbonate 600 mg-vitamin D3 10 mcg (400 unit) tablet (Calcium 600 + D(3)) 1 tab PO BID 09/15/23
cyanocobalamin (vitamin B-12) 1,000 mcg tablet (Vitamin B-12) 1,000 mcg PO DAILY 09/15/23
magnesium hydroxide 400 mg/5 mL oral suspension (Milk of Magnesia) 30 ml PO [id number] PRN if no bm x 3 days 09/15/23
multivitamin with minerals 1 tab PO DAILY 09/15/23
sodium phosphates 19 gram-7 gram/118 mL enema (Fleet Enema) 118 ml CO DAILYPRN PRN if dulcolax ineffective after 24hrs 09/15/23
acetaminophen 325 mg tablet (Tylenol) 650 mg PO [id number] PRN mild pain 12/21/23
olanzapine 2.5 mg tablet (Zyprexa) 2.5 mg PO HS 12/21/23
trazodone 50 mg tablet 12.5 mg PO BID 12/21/23
acetaminophen 325 mg tablet 650 mg (2 x 325 mg) PO Q4H #60 tabs 12/23/23
polyethylene glycol 3350 17 gram oral powder packet (HealthyLax) 17 g PO DAILYPRN PRN constipation #30 ea 12/23/23
Home Medication Changes
Pending Results: No
--- NOTE | 2023-12-23 12:36 | CM ---
Reviewed the chart notes. Voice message left for patient's daughter Zuly regarding discharge and IMM information. CM continues to be available to patient/family and is monitoring medical plan for needs at discharge.
Plan: Discharge back to [facility] today.
Call report to: [phone]
Fax report to: [phone]
Medical necessity and transport forms on chart.
[2023-12-23 13:07] VITALS: BP 160/92; PULSE 90; O2SAT 95
[2023-12-23 15:30] VITALS: BP 140/69
== END 2023-12-23 16:40 | DRG 482 ==
LOC: 2 SOUTH 20:56
PROVIDERS: ADMITTING PHYSICIAN Internal Medicine; ATTENDING PHYSICIAN Internal Medicine; CONSULT PHYSICIAN Orthopaedic Surgery; EMERGENCY PHYSICIAN Emergency Medicine; FAMILY PHYSICIAN Internal Medicine
PROC: 0QH734Z Insertion of Internal Fixation Device into Left Upper Femur, Percutaneous Approach (ICD-10-PCS; 2023-12-22)
DX: M80.052A Age-related osteoporosis with current pathological fracture, left femur, initial encounter for fracture (principal); Z66 Do not resuscitate; F03.90 Unspecified dementia, unspecified severity, without behavioral disturbance, psychotic disturbance, mood disturbance, and anxiety; D63.8 Anemia in other chronic diseases classified elsewhere; I10 Essential (primary) hypertension
CPT/HCPCS: 70450; 73502; 76000; 80048; 80053; 83735; 85025; 85027; 87070; 97163; 97167; 97530; 97535; 99285; C1713; C1769

== ENCOUNTER 2024-02-05 13:10 | Inpatient (IN) | payer MEDICARE, SELFPAY ==
[2024-02-02 15:14] VITALS: BMI 22.8
[2024-02-03] MEDS: TYLENOL 325 MG PO (20:38)
[2024-02-05] VITALS (10 sets, daily range): BP systolic 93–150; BP diastolic 35–104; BMI 22.7
[2024-02-05] MEDS: BACTROBAN NASAL 1 GRAM NASAL (14:15)
[2024-02-05] MEDS: NORMOSOL-R/PLASMALYTE-A 1000 IV ×2 (14:15→19:34)
--- NOTE | 2024-02-05 16:37 | OR.RPT ---
Operative Report
Operative Report
Orthopaedic Surgery Operative Note
DATE OF OPERATION: 02/05/2024
PREOPERATIVE DIAGNOSES: Left femoral neck malunion, hardware failure
POSTOPERATIVE DIAGNOSES: Same
OPERATION PERFORMED: Left hip hemiarthroplasty (22 modifier for complexity); removal of hardware
SURGEON: Tito Correa MD
PROPELLER LAYOUT WORKER: Jordin Gutierrez PA-C who helped with patient and limb positioning and retraction
ANESTHESIA: General
COMPLICATIONS: None.
ESTIMATED BLOOD LOSS: 200 mL.
DRAINS: None
SPECIMEN: None
FINDINGS: Displaced fracture of the femoral neck
IMPLANTS: [employer] stem size 11, standard offset, Size 48 Endo unipolar head, DJO bone cement, small cement restrictor, distal centralizer
INDICATIONS: The patient presented to the emergency department after a fall sustained about 6 weeks ago with left new onset hip pain. Xrays showed left nondisplaced femoral neck fracture. She underwent left femoral neck CRPP by me. She was
discharged to SNF and sustained a couple falls while at SNF. She followed up in the office 6 weeks after surgery, and xrays showed signs of displacement of the femoral neck fracture. She denied pain. I discussed treatment options with the patient
and her daughter. We discussed that based on the degree of displacement that revision fixation of the fracture may have a high risk of complication and failure. We discussed that surgical treatment would likely lead to further displacement and
eventual artiuclation of the screws in the pelvis causing pain. We discussed surgical treatment with arthroplasty. Based on the patient's age, dementia, and activity level, shared decision was to proceed with hemiarthroplasty if the acetabulum was
undamanged from the screws. I reviewed the risks, benefits, and alternatives of various treatment options. The patient understood the risks which included, but were not limited to, bleeding, infection, failure to relieve pain, more pain than preop,
damage to blood vessels and nerves, need for reoperation, mechanical failure of the implants, wound healing problems, stiffness, instability, blood clot, pulmonary embolism, myocardial infarction, pneumonia, arrhythmia, CVA, and . The patient
accepted these risks and wished to proceed. All questions were answered, and informed consent was obtained.
PROCEDURE IN DETAIL:
The patient was identified in the preoperative holding area. The left hip was identified as the operative site. The patient was taken in the operating room and transferred to the operative table. General anesthesia was performed. IV antibiotics and
tranexamic acid were administered. The patient was placed in the lateral position with Stulberg hip positioners. Axillary roll was placed. The down leg was well padded. All bony prominences were well padded. The operative limb was prepped and draped
in the usual sterile fashion.
Time out was performed. A posterolateral approach to the hip was used. The skin incision was centered over the greater trochanter. This was taken down sharply through subcutaneous tissues. Meticulous hemostasis was achieved throughout the case with
electrocautery. We split the fascia mariaelena in line with skin incision. I split the gluteus frederick bluntly. We cauterized all crossing vessels as we split it. I palpated the sciatic nerve and made sure it was well posterior in the operative field. It
was protected throughout the case. There was hematoma under the ITB. Dissection was more difficult due to the prior surgery and nonunion. No purulence or signs of infection.
The three cannulated screw heads were identified with their respective washers. These were removed without incident. The posterior anatomy was distorted due to fracture hematoma and swelling. I performed a partial bursectomy to identify the short
external rotators. The gluteus medius and minimus were identified and retracted anteriorly. I incised the piriformis tendon and conjoint tendon at their insertions. These were tagged for later repair. I then performed a trapezoidal capsulotomy. The
edges were tagged for later repair.
The femoral neck fracture was identified. The leg was flexed and internally rotated, and a fresh femoral neck cut was performed. The femur was translated anteriorly. Care was taken to preserve the labrum. The femoral head was carefully removed with
a contreras and a tenaculum. The head measured to be 48mm. The acetabulum was inspected and noted not to have marked degenerative changes. No signs of escoriations or damage from the screw heads. The head did not show penetration of the screws, either. A
trial head was placed in the acetabulum and size 48mm had appropriate fit and suction fit.
Attention was turned to the femur. Box osteotome and Charnley awe were used to open the canal. The femur was sequentially broached to size 11 which had appropriate fit and fill. A trial head was placed with standard offset neck and the hip was
reduced. Leg length and offset were checked and found to be appropriate. The hip was taken through complete range of motion and found to be stable in extension, the position of sleep, and at 90 degrees of flexion and internal rotation. Extended
offset was not available for the stem size, but the hip was stable with standard offset.
Trials were removed and the femoral canal was prepared with irrigation and ribbon gauze packing sequentially. A cement restrictor was placed into the femoral canal 1cm distal to the tip of the femoral stem. This was measured off the trial femoral
stem. Once the femoral canal was prepared, the cement was mixed. Once doughy in consistency, the cement was pressurized into the canal with a cement gun. The stem was then carefully inserted into the canal with care to minimize rotation or
micromotion. Excess cement was removed. Once the cement was polymerized, the joint was irrigated copiously. The acetabulum was inspected to be free of cement particles and other debris. The final head was impacted onto clean and dry trunion and the
hip was reduced. Leg length and stability were checked again and found to be acceptable. The sciatic nerve was inspected and noted to be free of tension and uninjured.
A dilute betadine soak was performed for approximately 3 minutes, and then the hip was copiously irrigated. I repaired the capsule, piriformis, and conjoint tendon with #2 Ethibond to drill holes in the greater trochanter. Local anesthetic was
injected. The fascia mariaelena was closed with #1 PDS in running fashion. The subcutaneous tissues were closed with 2-0 PDS in running fashion. The skin was reapproximated with 3-0 Monocryl subcuticular suture. I placed a Prineo dressing followed by a
Mepilex Ag dressing. The patient awoke from anesthesia without difficulty. Sponge and instrument counts were correct x2 at the end of the case.
I was present and participated in the entire procedure. The patient was sent to the recovery room in stable condition.
Of note, 22 modifer was added due to complexity for femoral neck malunion and prior hardware. This added about 20 additional minutes for exposure of the hip due to inflammatory changes from prior surgery and need for hardware removal.
Harsha Correa MD
[2024-02-05] MEDS: DEMEROL 12.5 MG IV (17:27)
[2024-02-05] MEDS: MORPHINE SULFATE 1 MG IV ×2 (18:20→18:57)
--- NOTE | 2024-02-05 19:30 | PTCARENOTE ---
Pt 84 y/o with hx of dementia and multiple falls came from PACU post Coversion L Cristopher. EBL 200 done unfder general. Pt confused x 3. Daughter Zuly will complete pt's admission via phone. She was the family member who gave consent for surgery, but
could not stay until pt brought up to 2S from PACU. Med Sitter in room. Pt from [facility] in [place] [facility]. Bed in a low position. Call light in reach.
[2024-02-05] MEDS: COLACE 100 MG PO (20:38)
[2024-02-05] MEDS: SENOKOT 17.2 MG PO (20:38)
[2024-02-05] MEDS: BACTROBAN 2% OINTMENT 1 APPLIC NASAL (20:39)
[2024-02-05] MEDS: TORADOL 10 MG IV (20:42)
[2024-02-05] MEDS: NEURONTIN 100 MG PO (20:42)
[2024-02-05] MEDS: ZYPREXA 2.5 MG PO (21:48)
[2024-02-05] MEDS: MELATONIN 3 MG PO (21:48)
[2024-02-05] MEDS: PEPCID 20 MG PO (21:48)
[2024-02-05] MEDS: ANCEF 5 IV (21:48)
[2024-02-05] MEDS: TYLENOL PO (22:00)
[2024-02-05] MEDS: DESYREL PO (22:03)
[2024-02-05] MEDS: ASPIRIN PO (22:06)
[2024-02-05] MEDS: DESYREL 25 MG PO (22:13)
[2024-02-05] MEDS: TYLENOL 325 MG PO (23:42)
[2024-02-06] VITALS (8 sets, daily range): BP systolic 92–130; BP diastolic 42–81; PULSE 60; O2SAT 95; BMI 22.7
--- NOTE | 2024-02-06 00:20 | PTCARENOTE ---
Pt has history of dementia, has been combative & trying to get out of bed. Pt removed 2 IVs. Spoke with daughter Zuly who said patient was in restraints here at in December 2023 post surgery. Reached out to [employer] TRIMMER about mittens and restraints order
finalized at 00:20.
[2024-02-06] MEDS: TYLENOL 325 MG PO ×4 (03:55→23:13)
[2024-02-06] MEDS: ANCEF 5 IV (05:12)
[2024-02-06] MEDS: TYLENOL PO ×3 (11:20→17:32)
[2024-02-06] MEDS: ASPIRIN 325 MG PO (11:21)
[2024-02-06] MEDS: NEURONTIN 100 MG PO ×2 (11:21→20:56)
[2024-02-06] MEDS: SENOKOT 17.2 MG PO ×2 (11:21→20:55)
[2024-02-06] MEDS: MOBIC 15 MG PO (11:21)
[2024-02-06] MEDS: DESYREL 25 MG PO ×2 (11:21→21:50)
[2024-02-06] MEDS: DECADRON 4 MG PO ×2 (11:21→20:55)
[2024-02-06] MEDS: COLACE 100 MG PO ×2 (11:21→20:55)
[2024-02-06] MEDS: BACTROBAN 2% OINTMENT 1 APPLIC NASAL ×2 (11:22→20:54)
[2024-02-06] MEDS: TORADOL 10 MG IV ×2 (11:22→21:56)
--- NOTE | 2024-02-06 12:11 | W.PN.ORTHO ---
Today's Communication / Plan
-
d/c when stable
Assessment
.
Distal Motor Intact: Yes
Dressing:
Clean, dry and intact.
Assessment:
L hip fracture-s/p Left femoral neck percutaneous pinning-12/22/23 Dr. Correa-conversion to left hip hemiarthroplasty-02/05/24
Plan
.
Surgery / Date: L hip hemiarthroplasty Dr. Correa 02/05/24
DVT Prophylaxis: Aspirin
Activity:
Out of bed.
PT/OT
Discharge Plan: SNF
Subjective
.
.:
Patient resting comfortably.
Vital Signs and Labs
.
Vital Signs and Labs:
Temp Pulse Resp BP Pulse Ox
97.6 F 73 16 130/80 100
02/06/24 11:37 02/06/24 11:37 02/06/24 11:37 02/06/24 11:37 02/06/24 11:37
Non-invasive Hgb result: 10.4
Physical Exam
-
HEENT: No pallor, cyanosis, or jaundice. Throat clear.
NECK: Supple. No JVD.
RESPIRATORY: Lungs clear to auscultation.
CVS: S1, S2 normal. RRR.� No murmur, rub or gallop.
ABDOMEN: Soft, non-tender. No distension. BS+/normal.
EXTREMITIES: strength equal, no calf pain with palpation
CTC OPERATOR: pleasantly confused, alert to persont
--- NOTE | 2024-02-06 12:25 | W.DS.TRANS ---
DC Summary - Gas Inspector
-
Discharge Instructions:
Discharge Diagnosis/Procedures L hip hemiarthroplasty Dr. Correa 02/05/24
Diet As tolerated
Activity With Walker,With assistance
Additional Activity Fall Precautions
Driving Restrictions No driving
Bathing Restrictions OK to Shower
Instructions:
Stand-Alone Forms:
Changes to Home Medications: Yes
Discharge Medications:
DC Medications w/original date entered in [facility]
alendronate 70 mg tablet 70 mg PO QWEEK OSTEOPOROSIS 09/15/23
bisacodyl 10 mg rectal suppository (Dulcolax (bisacodyl)) 10 mg NM DAILYPRN PRN if mom ineffective after 24hrs 09/15/23
calcium carbonate 600 mg-vitamin D3 10 mcg (400 unit) tablet (Calcium 600 + D(3)) 1 tab PO BID Supplement 09/15/23
cyanocobalamin (vitamin B-12) 1,000 mcg tablet (Vitamin B-12) 1,000 mcg PO DAILY Supplement 09/15/23
magnesium hydroxide 400 mg/5 mL oral suspension (Milk of Magnesia) 30 ml PO [id number] PRN if no bm x 3 days 09/15/23
sodium phosphates 19 gram-7 gram/118 mL enema (Fleet Enema) 118 ml NM DAILYPRN PRN if dulcolax ineffective after 24hrs 09/15/23
olanzapine 2.5 mg tablet (Zyprexa) 2.5 mg PO HS Mental Health/Anxiety 12/21/23
trazodone 50 mg tablet 25 mg PO TID Sleep 12/21/23
acetaminophen 325 mg tablet 650 mg PO Q4H PRN pain/fever 02/02/24
melatonin 3 mg tablet 3 mg PO HS PRN insomnia 02/02/24
multivitamin 1 tab PO DAILY Supplement 02/02/24
sennosides 8.6 mg tablet (senna) 8.6 mg PO HS Constipation 02/02/24
acetaminophen 300 mg-codeine 30 mg tablet 1 tab PO Q4HPRN PRN moderate-severe pain #10 tabs 02/06/24
aspirin 325 mg tablet 325 mg PO DAILY blood clot prevention #1 tab 02/06/24
dexamethasone 4 mg tablet 4 mg PO BID inflammation #6 tabs 02/06/24
famotidine 20 mg tablet 20 mg PO HS GI prophylaxis #30 tabs 02/06/24
gabapentin 100 mg capsule 100 mg PO BID #10 caps 02/06/24
meloxicam 15 mg tablet 15 mg PO DAILY anti-inflammatory #14 tabs 02/06/24
Home Medication Changes
acetaminophen 300 mg-codeine 30 mg tablet 1 tab PO Q4HPRN PRN moderate-severe pain #10 tabs 02/06/24
aspirin 325 mg tablet 325 mg PO DAILY blood clot prevention #1 tab 02/06/24
dexamethasone 4 mg tablet 4 mg PO BID inflammation #6 tabs 02/06/24
famotidine 20 mg tablet 20 mg PO HS GI prophylaxis #30 tabs 02/06/24
gabapentin 100 mg capsule 100 mg PO BID #10 caps 02/06/24
meloxicam 15 mg tablet 15 mg PO DAILY anti-inflammatory #14 tabs 02/06/24
Pending Results: No
--- NOTE | 2024-02-06 12:32 | CM ---
Addendum entered by Tamika See 02/06/24 14:40:
[facility]
Report #[phone]

Addendum entered by Tamika See 02/06/24 13:06:
[facility]ERG per Mary from [facility] to send electronic script for controlled medication to the Pharmacy on the chart
Original Note:
Initial assessment completed via phone # [phone] with primary contact/daughter, Zuly Meneses
Pharmacy verified: [facility] [address]
IMM benefit explained via phone @ [phone]
Attending aware that scripts for controlled substances need to be printed and sent to facility when patient is discharged
Patient is a oysterman care resident at [facility]; confused w/ impaired attention span
Daughter reported that prior to fall and hip fracture in December, patient was ambulatory without a device; patient requires total personal care; she is incontinent; and wheelchair bound
Daughter stated that in the future she will find placement for mother at a facility that has a memory care unit
Plan: return to [facility] when medically stable; Skilled Rehab bed requested; referral submitted via [facility]
[2024-02-06] MEDS: DESYREL PO ×2 (16:00→17:32)
[2024-02-06] MEDS: TORADOL IV (20:55)
[2024-02-06] MEDS: MELATONIN 3 MG PO (20:59)
[2024-02-06] MEDS: KEFLEX 500 MG PO (20:59)
[2024-02-06] MEDS: PEPCID 20 MG PO (21:50)
[2024-02-06] MEDS: ZYPREXA 2.5 MG PO (21:52)
[2024-02-07] MEDS: TYLENOL 325 MG PO ×4 (04:54→21:42)
--- NOTE | 2024-02-07 09:04 | W.PN.ORTHO ---
Today's Communication / Plan
-
84-year-old female POD 3 Left Hip EMELI conversion to Left Hip Hemiarthroplasty 02/[address] Correa
- WBAT LLE with use of walker for assistance.
- Abductor pillow intact while sitting and laying in bed.
- Posterior Hip Precautions.
- PT/OT/DC planning. Anticipating D/C Friday to SNF.
- ASA 325mg once daily x 4 weeks for DVT prophylaxis.
- Pain control.
- Orthopedic surgery will continue to follow along.
Assessment
.
Distal Motor Intact: Yes
Dressing:
Clean, dry and intact.
Abductor Pillow intact.
Plan
.
Surgery / Date: L hip hemiarthroplasty Dr. Correa 02/05/24
DVT Prophylaxis: Aspirin
Activity:
Out of bed.
PT/OT
Discharge Plan: SNF
Discharge Information:
Appreciate CM. Anticipating D/C Friday.
Subjective
.
.:
Patient resting comfortably.
Vital Signs and Labs
.
Vital Signs and Labs:
Temp Pulse Resp BP Pulse Ox
97.5 F 65 16 124/65 98
02/06/24 23:45 02/06/24 23:45 02/06/24 23:45 02/06/24 23:45 02/06/24 23:45
Non-invasive Hgb result: 9.8
[2024-02-07 09:32] VITALS: BP 118/62
[2024-02-07 09:37] LABS: % Basophils 0.2 % (0-2); % Immature Granulocytes 0.3 % (0-0.5); % Lymphocytes 11.5 % (20.5-51.1); % Monocytes 4.1 % (1.7-9.3); % Neutrophils 83.9 % (42.2-75.2); Absolute Lymphocytes 0.7 10^3/uL (1.2-3.4); Absolute Monocytes 0.2 10^3/uL (0.1-0.6); Absolute Neutrophils 4.9 10^3/uL (1.4-6.5); Hematocrit 29.8 % (37.0-47.0); Hemoglobin 10.4 g/dL (12.0-16.0); Mean Corp Hgb Conc. 34.9 g/dL (33.0-37.0); Mean Corpuscular Hgb 32.2 pg (27.0-31.0); Mean Corpuscular Volume 92.3 fL (81.0-99.0); Nucleated Red Blood Cells % 0 %; Platelet Count 182 10^3/uL (130-400); Red Blood Cell Count 3.23 10^6/uL (4.20-5.40); Red Cell Dist. Width 12.4 % (11.5-14.5); White Blood Cell Count 5.8 10^3/uL (4.8-10.8)
[2024-02-07] MEDS: MOBIC 15 MG PO (09:38)
[2024-02-07] MEDS: SENOKOT 17.2 MG PO ×2 (09:38→21:40)
[2024-02-07] MEDS: ASPIRIN 325 MG PO (09:38)
[2024-02-07] MEDS: KEFLEX 500 MG PO ×2 (09:39→21:39)
[2024-02-07] MEDS: NEURONTIN 100 MG PO ×2 (09:39→21:40)
[2024-02-07] MEDS: DECADRON 4 MG PO ×2 (09:39→21:41)
[2024-02-07] MEDS: COLACE 100 MG PO ×2 (09:39→21:41)
[2024-02-07] MEDS: DESYREL 25 MG PO ×3 (09:39→21:41)
[2024-02-07] MEDS: TYLENOL PO (15:48)
[2024-02-07 16:00] VITALS: BP 124/82
--- NOTE | 2024-02-07 18:45 | PTCARENOTE ---
started shift at 1845- pt was out of restraints at beginning of my shift.so i dc'd restraint documentation in work list
[2024-02-07] MEDS: PEPCID 20 MG PO (21:40)
[2024-02-07] MEDS: MELATONIN 3 MG PO (21:41)
[2024-02-07] MEDS: ZYPREXA 2.5 MG PO (21:42)
[2024-02-07] MEDS: TYLENOL #3 1 TABLET PO (21:42)
[2024-02-07 23:29] VITALS: BP 136/67
[2024-02-08] MEDS: TYLENOL PO ×2 (00:11→03:57)
--- NOTE | 2024-02-08 03:03 | PTCARENOTE ---
pt pleasant and cooperative although very confused-
[2024-02-08 07:42] VITALS: BP 117/73
--- NOTE | 2024-02-08 08:02 | W.PN.ORTHO ---
Today's Communication / Plan
-
84-year-old female POD 4 Left Hip EMELI conversion to Left Hip Hemiarthroplasty 02/[address] Correa
- WBAT LLE with use of walker for assistance.
- Abductor pillow intact while sitting and laying in bed.
- Posterior Hip Precautions.
- PT/OT/DC planning. For D/C today to [facility].
- ASA 325mg once daily x 4 weeks for DVT prophylaxis.
- Hgb yesterday 10.4.
- Infection Prophylaxis with Keflex 500mg BID x 5 days. [address]
- Pain control.
- Orthopedic surgery will sign off at this time. Patient will follow-up in the office in 2 weeks for incision check and clinical evaluation.
Assessment
.
Distal Motor Intact: Yes
Dressing:
Clean, dry and intact.
Abductor Pillow intact.
Assessment:
POD [address] Cristopher [address] Dr[address] Correa 02/04
Plan
.
Surgery / Date: L hip hemiarthroplasty Dr. Correa 02/05/24
DVT Prophylaxis: Aspirin
Activity:
Out of bed.
PT/OT
Discharge Information:
Appreciate CM. For D/C Today.
Subjective
.
.:
Patient resting comfortably.
Vital Signs and Labs
.
Vital Signs and Labs:
Temp Pulse Resp BP Pulse Ox
97.5 F 64 16 117/73 95
02/08/24 07:42 02/08/24 07:42 02/08/24 07:42 02/08/24 07:42 02/08/24 07:42
Non-invasive Hgb result: 10.2
--- NOTE | 2024-02-08 08:16 | W.DS.TRANS ---
DC Summary - [employer]
-
Discharge Instructions:
Discharge Diagnosis/Procedures L hip hemiarthroplasty Dr. Correa 02/05/24
Diet As tolerated
Activity With Walker,With assistance,Do not bear weight L
leg
Additional Activity Fall Precautions
Driving Restrictions No driving
Bathing Restrictions OK to Shower
Instructions:
Stand-Alone Forms:
Changes to Home Medications: No
Discharge Medications:
DC Medications w/original date entered in [employer]
alendronate 70 mg tablet 70 mg PO QWEEK OSTEOPOROSIS 09/15/23
bisacodyl 10 mg rectal suppository (Dulcolax (bisacodyl)) 10 mg DE DAILYPRN PRN if mom ineffective after 24hrs 09/15/23
calcium carbonate 600 mg-vitamin D3 10 mcg (400 unit) tablet (Calcium 600 + D(3)) 1 tab PO BID Supplement 09/15/23
cyanocobalamin (vitamin B-12) 1,000 mcg tablet (Vitamin B-12) 1,000 mcg PO DAILY Supplement 09/15/23
magnesium hydroxide 400 mg/5 mL oral suspension (Milk of Magnesia) 30 ml PO [id number] PRN if no bm x 3 days 09/15/23
sodium phosphates 19 gram-7 gram/118 mL enema (Fleet Enema) 118 ml DE DAILYPRN PRN if dulcolax ineffective after 24hrs 09/15/23
olanzapine 2.5 mg tablet (Zyprexa) 2.5 mg PO HS Mental Health/Anxiety 12/21/23
trazodone 50 mg tablet 25 mg PO TID Sleep 12/21/23
acetaminophen 325 mg tablet 650 mg PO Q4H PRN pain/fever 02/02/24
melatonin 3 mg tablet 3 mg PO HS PRN insomnia 02/02/24
multivitamin 1 tab PO DAILY Supplement 02/02/24
sennosides 8.6 mg tablet (senna) 8.6 mg PO HS Constipation 02/02/24
acetaminophen 300 mg-codeine 30 mg tablet 1 tab PO Q4HPRN PRN moderate-severe pain #10 tabs 02/06/24
aspirin 325 mg tablet 325 mg PO DAILY blood clot prevention #1 tab 02/06/24
dexamethasone 4 mg tablet 4 mg PO BID inflammation #6 tabs 02/06/24
famotidine 20 mg tablet 20 mg PO HS GI prophylaxis #30 tabs 02/06/24
gabapentin 100 mg capsule 100 mg PO BID #10 caps 02/06/24
meloxicam 15 mg tablet 15 mg PO DAILY anti-inflammatory #14 tabs 02/06/24
cephalexin 500 mg capsule 500 mg PO BID Infection prophylaxis 5 days #10 caps 02/08/24
Home Medication Changes
Pending Results: No
Total time spent discharging patient (in min): 30 Minutes
[2024-02-08] MEDS: KEFLEX 500 MG PO (08:22)
[2024-02-08] MEDS: ASPIRIN 325 MG PO (08:22)
[2024-02-08] MEDS: NEURONTIN 100 MG PO (08:23)
[2024-02-08] MEDS: DESYREL 25 MG PO (08:23)
[2024-02-08] MEDS: DECADRON 4 MG PO (08:23)
[2024-02-08] MEDS: COLACE 100 MG PO (08:23)
[2024-02-08] MEDS: TYLENOL 325 MG PO ×2 (08:23→11:46)
[2024-02-08] MEDS: SENOKOT 17.2 MG PO (08:23)
[2024-02-08] MEDS: MOBIC 15 MG PO (08:23)
[2024-02-08 10:02] VITALS: BP 108/81; PULSE 54; O2SAT 94
--- NOTE | 2024-02-08 10:58 | CM ---
Addendum entered by Flor Short 02/08/24 11:07:
VM left for patient family member Zuly re;request to call to CM to review discharge plan.
Original Note:
Patient seen at bedside. Patient for transfer back to [facility] today. CM spoke with LiaisonMary and plan is for return to SNF today. [facility] call report to [phone]/fax [phone]. CM will continue to follow for discharge planning
needs.
Plan; return to SNF via ambulance today.
[2024-02-08 12:04] LABS: % Basophils 0.2 % (0-2); % Immature Granulocytes 0.6 % (0-0.5); % Monocytes 3.2 % (1.7-9.3); Absolute Lymphocytes 0.4 10^3/uL (1.2-3.4); Absolute Monocytes 0.2 10^3/uL (0.1-0.6); Absolute Neutrophils 5.6 10^3/uL (1.4-6.5); Hematocrit 32.6 % (37.0-47.0); Hemoglobin 11.1 g/dL (12.0-16.0); Mean Corpuscular Hgb 31.4 pg (27.0-31.0); Mean Corpuscular Volume 92.1 fL (81.0-99.0); Nucleated Red Blood Cells % 0 %; Platelet Count 245 10^3/uL (130-400); Red Blood Cell Count 3.54 10^6/uL (4.20-5.40); Red Cell Dist. Width 12.7 % (11.5-14.5); White Blood Cell Count 6.3 10^3/uL (4.8-10.8)
[2024-02-08 15:04] VITALS: BP 99/44
== END 2024-02-08 15:30 | DRG 468 ==
LOC: 2 SOUTH 13:10
PROVIDERS: Student in an Organized Health Care Education/Training Program; ADMITTING PHYSICIAN Orthopaedic Surgery
PROC: 0SRS0J9 Replacement of Left Hip Joint, Femoral Surface with Synthetic Substitute, Cemented, Open Approach (ICD-10-PCS; 2024-02-05)
PROC: 0SPB0JZ Removal of Synthetic Substitute from Left Hip Joint, Open Approach (ICD-10-PCS; 2024-02-05)
DX: S72.002A Fracture of unspecified part of neck of left femur, initial encounter for closed fracture (principal); F03.90 Unspecified dementia, unspecified severity, without behavioral disturbance, psychotic disturbance, mood disturbance, and anxiety; W19.XXXA Unspecified fall, initial encounter
CPT/HCPCS: 73502; 85025; 86850; 86900; 86901; 87070; 93005; 97163; 97167; 97530; C1713; C1776